=== PATIENT | male | born 1970 | race Caucasian/White ===

== ENCOUNTER 2023-04-02 08:08 | Outpatient (CLI) | payer OTHER, SELFPAY | END 2023-04-02 08:09 | disposition home or self-care (01) | LOC: INJ CL 08:09 | PROVIDERS: PCP Family Medicine; Visit Provider Family Medicine | DX: M54.16 Radiculopathy, lumbar region (principal); M51.26 Other intervertebral disc displacement, lumbar region | CPT/HCPCS: 62323; J0702; Q9966 ==

== ENCOUNTER 2023-04-23 10:01 | Outpatient (CLI) | payer OTHER, SELFPAY | END 2023-04-23 10:02 | disposition home or self-care (01) | LOC: INJ CL 10:01 | PROVIDERS: PCP Family Medicine; Visit Provider Family Medicine | DX: M54.16 Radiculopathy, lumbar region (principal); M51.26 Other intervertebral disc displacement, lumbar region | CPT/HCPCS: 64483; J1100; Q9966 ==

== ENCOUNTER 2023-08-05 16:45 | Outpatient (RCR) | payer BC, OTHER, SELFPAY | END 2023-10-03 13:28 | disposition home or self-care (01) | PROVIDERS: PCP Family Medicine; Visit Provider Family Medicine | DX: M54.16 Radiculopathy, lumbar region (principal); Z51.89 Encounter for other specified aftercare | CPT/HCPCS: 97110; 97140; 97161 ==

== ENCOUNTER 2024-06-23 13:39 | Emergency (ER) | payer BC, SELFPAY ==
--- OUTSIDE RECORDS SUMMARY | 2024-06-23 13:42 | XMS_ITS | Continuity of Care Document ---
Author Organization [facility] Address [address] [place] [address] Phone Care Team Providers Care Route Carrier Name Role Phone Too RIDLEY, PhD, Henok Unavailable Unavai lable Allergies, Adverse Reactions, Alerts Substance Reaction Status Criticality azithromycin Active No Information Medications Medication Instructions Dosage Effective Dates (start - stop) Status Comments ATORVASTATIN CALCIUM (unknown strength) Not Available - Active CITALOPRAM HBR (unknown strength) Not Available - Active FLONASE ALLERGY RELIEF (unknown strength) Not Available - Active OXYCODONE HCL (unknown strength) Not Available - Active LISINOPRIL-HYDROCHLOROT HIAZIDE (unknown strength) Not Available - Active IBUPROFEN (unknown strength) Not Available - Active ACETAMINOPHEN (unknown strength) Not Available - Active Procedures Procedure Date Office/Outpatient Visit,New, Mod 2022 X-Ray Exam Lwr Spine, Min 4 Views Advance Directives Directive Yes / No Effective Date File Name No Information Encounters Encounter Description Practice Location Reason(s) For Visit Diagnoses Date Provider Providers Copied on Encounter Office/Outpat ient Visit,New, Mod [facility], [address], [facility] [place], [id number], [place] tel:[phone] [facility] [place] Spinal stenosis, lumbar region without neurogenic claudication Too [place]. [facility], [address], [place], [address], [place]. tel:[phone] Referring Provider: Jesús Mathews, [employer] [address], [place], [address]. tel:[phone] Family History Family Member Type Diagnosis Age At Onset No Information Payers Payer name Insurance type Covered constitution party ID Geovani chance(s) [employer] [id number] Social History Type Description Quantity Date Captured Comments Sex Male Smoking Status No Information Vital Signs Date / Time: Height Weight BMI Pulse Rate Blood Pressure Temperature Respiratory Rate Body Surface Area Head Circumference Head Circ. Percentile Wt./Avila. Percentile BMI percentile Pulse Ox Inhaled Ox 11:59 AM 71.75 in 112.400 kg (247.80 lbs) 33.8 4 kg/m eter (2) Chief Complaint And Reason For Visit No Information Reason For Referral Reason For Referral No Information History Of Present Illness Encounter Date Complaint History Of Prese nt Illness No Information Functional Status Date Functional Assessmen t No Information Instructions Date Instruction Additional Infor mation No Information Assessments Type Assessment Date No Information Patient Care Teams Name Effective Dates (start - stop) Status Members No Information
--- OUTSIDE RECORDS SUMMARY | 2024-06-23 13:42 | XMS_ITS | Clinical Summary ---
Author Organization [facility] Address [place], [place] [address] Care Team Providers Care Farm Worker Name Role Phone Jesús Mendieta MD Primary Care Provider Allergies Active Allergy Reactions Criticality Noted Date Comments Azithromycin Hives 06/01/2013 Medications EXCEDRIN EXTRA STRENGTH 250 MG-250 MG-65 MG TAB takes prn 0 007 Active fexofenadine (PRAVEEN) 180 mg tabletIndications:Sergio rgic rhinitis, cause unspecified Take 1 tablet by mouth once daily with a meal. 0 015 Active fluticasone propionate (FLONASE ALLERGY RELIEF NASL) 021 Active oxyCODONE (ROXICODONE) 5 mg immediate release tabletIndications:Lumb ar radiculopathy Take 1-2 Tablets (5-10 mg) by mouth every 8 hours if needed for Pain. 24 Tablet 023 Active atorvastatin (LIPITOR) 20 mg tabletIndications:Pure hypercholesterolemia Take 1 Tablet (20 mg) by mouth at bedtime. 90 Tablet 3 024 Active lisinopril-hydrochloro thiazide (10-12.5 mg) tablet (PRINZIDE; ZESTORETIC)Indications :Benign essential HTN Take 1 Tablet by mouth once daily. 90 Tablet 3 024 Active CPAPIndications:FERNANDO (obstructive sleep apnea) CPAP machine for home use at pressure: 5-16 cmw , Heated humidifier x 1 q 5 yr, Humidifier chamber x 1 q 6 mo, nasal mask x1 q 3mos, with cushion x 2 q mo, Heated tubing x 1 q 3 mo, chin strap 1/6 months, Headgear x 1 q 6 mo, Filters: Disposable x 2 q mo non-disposab le filters x1 q 6mo, Length of Need: 99 months, Frequency of use: Daily 1 Each 11 024 Active citalopram (CELEXA) 20 mg tabletIndications:Anxi ety TAKE ONE TABLET BY MOUTH EVERY DAY IN THE MORNING. 30 Tablet 025 Active citalopram (CELEXA) 20 mg tabletIndications:Anxi ety Take 1 Tablet (20 mg) by mouth every morning. 90 Tablet 1 024 06/16 Discontinued Active Problems Problem Noted Date Diagnosed Date Colon polyp 10/24/2023 Overview (10/24/2023): Colonoscopy 10/2023 TA, repeat in 7 years Type 2 diabetes mellitus wit hout complication, without long-term current use of insulin 09/11/2021 Generalized anxiety disorder 01/31/2021 Chronic insomnia 01/01/2021 Lumbar disc herniation 04/13/2016 Lumbar spinal stenosis 04/13/2016 Internal hemorrhoids without mention of complica tion 09/15/2010 Overview (09/15/2010): Colonoscopy 09/2010 hemorrhoid repeat at age 52 Migraine variant 08/08/2010 Overview (08/08/2010): Visual changes no pain Allergic rhinitis, cause unspecified 10/17/2006 Unspecified essential hypertension 10/17/2006 Pure hypercholesterolemia 10/17/2006 Calculus of kidney 10/17/2006 FERNANDO (obstructive sleep apnea) Resolved Problems Problem Noted Date Diagnosed Date Resolved Date Impaired fasting blood sugar 08/09/2010 09/11/2021 Overview (08/09/2010): 118 on 08/09/2010 Internal thrombosed hemorrhoids 08/08/2010 04/02/2018 Mole (skin) 08/08/2010 04/02/2018 Impingement syndrome of shoulder 08/08/2010 04/02/2018 Unspecified congenital cystic kidney disease 7 04/02/2018 Benign neoplasm of skin of o ther and unspecified parts of face 10/17/2006 04/02/2018 Encounters Date Type Department Care Team Description 06/22/2024 7:30 AM [facility] Orders Only [facility] [address] [place] [address] Lab, [place] [facility] 06/22/2024 Travel 06/17/2024 Travel 06/15/2024 Refill [facility] [address] [place] [address] Jesús Mendieta MD Refill Request (Citalopram) from Last 3 Months Immunizations Name Administration Dates Next Due AMB Influenza, IIV4 PF (=>6 mos Flulaval,Fluzone Fluarix)(Flu Clinic Only) 04/03/2016 COVID-19 vaccine (Amina-J& J) PF, MDV 07/23/2020 COVID-19 vaccine (Moderna 100mcg/0.5mL) PF, MDV 03/13/2021 COVID-19 vaccine (ComSense Technology-Bio NTech 30mcg/0.3mL) 12YO+ JENSEN-SUCROSE PF, MDV 10/16/2021 Hepatitis B (Adult) 01/21/2024,08/08/2023,2023 Influenza RIV4 (Age 18+ Year s) PRESERV FREE 01/25/2017 Influenza, IIV3 (Age >=3 years) 03/02/20 21,02/09/2014,02/06/2013,2011 Influenza, IIV4 02/23/2022, 8,04/03/2016,2014 Influenza, IIV4 (=>6mos) MDV 02/12/2020,02/20/20 19 Pneumococcal Conj 20-valent (Prevnar 20) 01/21/2024 Td (Age >=7 Years) 09/10/2002 Tdap 09/11/2021,02/01/2012 Zoster (Shingrix-RZV, recombinant) 07/08/2023, Family History Medical History Relation Name Comments Arthritis Father Heart Disease Father valve disease. Hyperlipidemia Father Hypertension Father Other Father loosing bone de nsity Stroke Maternal Grandfather Heart Disease Maternal Grandmother fatal mi at 59 Heart Disease Maternal Uncle 2 mi at 40 Arthritis Mother Diabetes Mother Heart Disease Mother not cad Other Mother glaucoma Polycystic ovary syndrome Mother Relation Name Status Comments Father Alive 68, hypertensio n, hypercholest, bicuspid aortic valve, at fib Maternal Grandfather (Age 70) CV A age 60 Maternal Grandmother (Age 60s) M I Maternal Uncle 1 (Age 40) cardia c myopathy, Maternal Uncle 2 Mother Alive 69, hypercholes t, AT Fib, Diabetes, Glaucoma, Renal cysts, osteoporosis,prolapsed mitral valve, cardiac arrythimia, kidnye stones Other 1 (Age 42) mmfather, [place] Other 2 (Age 46) mffather, [place] Paternal Grandfather unknown Paternal Grandmother unknown Sister Alive Diabetes Social History Tobacco Use Types Packs/Day Years Used Date Smoking Tobacco: Never Smokeless Tobacco: Never Tobacco Cessation:Counseling Given: No Alcohol Use Standard Drinks/Week Comments Yes 0 (1 standard drink = 0.6 oz pur e alcohol) 2-3 per week PHQ-2 Answer Date Recorded PHQ-2 TOTAL SCORE 1 07/08/2023 Social Connections Answer Date Recorded Do you often feel lonely or isolated from those around you? 0 03/26/2023 Financial Resource Strain Answer Date R ecorded Difficulty of Paying Living Expenses 3 03/26/2023 Difficulty of Paying Living Expenses Not on file 03/26/2023 Food Insecurity Answer Date Recorded Do you worry your food will run out before you are able to buy more? 1 03/26/2023 Transportation Needs Answer Date Record ed Does lack of transportation keep you from medica l appointments? 1 03/26/2023 Does lack of transportation keep you from work, meetings or getting things that you need? 1 03/26/2023 Housing Stability Answer Date Recorded What is your housing situation today? 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 Not on file Not on file Not on yoni e Obstetrics History Last Filed Vital Signs Vital Sign Reading Time Taken Comments Blood Pressure 112/74 01/21/2024 8:08 AM CDT Pulse 80 01/21/2024 7:56 AM CDT Temperature 36.8 C (98.3 F) 07/24/2023 1:00 PM CDT Respiratory Rate 14 10/22/2023 9:28 AM CDT Oxygen Saturation 97% 01/21/2024 7:56 AM CDT Inhaled Oxygen Concentration - - Weight 115.8 kg (255 lb 3.2 oz) 01/21/2024 7:56 AM CDT Height 183.1 cm (6' 0.09) 07/08/2023 8:03 AM CS T Body Mass Index 34.53 07/08/2023 8:03 AM [facility] Plan of Treatment Upcoming Encounters Date Type Department Care Team (Late st Contact Info) Description 07/01/2024 8:00 AM [facility] Office Visit [facility] [address] [place] [address] Jesús Mendieta MD [address] [place] [address] Health Maintenance Due Date Last Done Comments COVID-19 vaccine series ( season) 2024 03/02/2023, 10/16/2021, 03/13/2021, Additional history exists Influenza for age 50-64 01/12/2024 02/24/20, 03/02/2021, 02/12/2020, Additional history exists BMI (ht and wt on same day) for age 18+ 07/08/2024 07/08/2023, 09/11/2021, 03/04/2020, Additional history exists Depression screening for age 12+ 07/08/2024 07/08/2023, 07/08/2023, 09/11/2021, Additional history exists Lipids for age 45-75 06/22/2029 06/22/2024, 01/21/2024, 07/04/2023, Additional history exists Colonoscopy through age 75 10/21/203010/21, 10/22/2023, 10/22/2023, Additional history exists Tetanus booster 09/12/2031 09/11/2021, 01/12, 09/10/2002 Hepatitis C screening for ag e 18-79 Completed 09/11/2021 Tdap Completed 09/11/2021, 02/01/2012 HIV for age 15-65 Completed 06/28/2022 Zoster (shingles) series for age 50+ Completed 07/08/2023, 02/14/2023 Hepatitis B series for Diabetes Completed 01/21/2024, 08/08/2023, 07/08/2023 Pneumococcal series for age 50+ Completed Procedures Procedure Name Priority Date/Time Associated Diagnosis Comments URINE ALBUMIN TO CREATININE RATIO, RANDOM Routine 06/22/2024 7:54 AM [facility] Type 2 diabetes mellitus without complication, without long-term current use of insulin (HC) BASIC METABOLIC PANEL Routine 06/22/2024 7:43 AM [facility] Type 2 diabetes mellitus without complication, without long-term current use of insulin (HC) LIPID PANEL W REFLEX MEASURED LDL Routine 06/22/2024 7:43 AM [facility] Type 2 diabetes mellitus without complication, without long-term current use of insulin (HC) HEMOGLOBIN A1C MONITORING (POCT) Routine 06/22/2024 7:42 AM [facility] Type 2 diabetes mellitus without complication, without long-term current use of insulin (HC) COLONOSCOPY SCREENING Routine 10/22/2023 7:56 AM CDT Screening for colon cancer LC HIV-1/O/2, 4TH GENERATION Routine 06/28/2022 7:53 AM [facility] Encounter for screening for HIV ANTI HCV Routine 09/11/2021 8:49 AM CDT Need for hepatitis C screening test from Last 3 Months or Most Recently Relevant to Health Maintenance Results * URINE ALBUMIN TO CREATININE RATIO, RANDOM (06/22/2024 7:54 AM [facility]) ALB RAND URINE <12.0 mg/L 06/22/2024 6:22 PM [facility] CREATININE,URINE 3.08 g/L 06/22/19 6:22 PM [facility] ALBUMIN TO CREATININE RATIO,RAND UR 06/22/2024 6:22 PM [facility] Comment:Urine Albumin below measurement range, unable to calculate. Urine URINE SPECIMEN / Unknown Non-Blood / Unknown 06/22/2024 7:54 AM [facility] 06/22/2024 7:54 AM [facility] Narrative [facility] - 06/22/2024 6:22 PM [facility] If Albumin to Creatinine Ratio is elevated, consider the following: Elevations seen with incipient nephropathy associated with diabetes mellitus or hypertension. Stress, exercise,hematuria, and urinary tract infection may also produce elevated results. If clinically indicated, confirm with 24 Hour Albumin to Creatinine Ratio. us Jesús Mendieta MD URINE Final Result [facility] [address] [place] [address], [place] * LIPID PANEL W REFLEX MEASURED LDL (06/22/2024 7:43 AM [facility]) CHOLESTEROL, TOTAL 158 <200 mg/dL [facility] HDL CHOLESTEROL 53 > OR = 40 mg/dL [facility] TRIGLYCERIDES 107 <150 mg/dL [facility] LDL-CHOLESTEROL 85 mg/dL (calc) [facility] Comment: Reference range: <100 Desirable range <100 mg/dL for primary prevention; <70 mg/dL for patients with CHD or diabetic patients with > or = 2 CHD risk factors. LDL-C is now calculated using the Michael-Vlad calculation, which is a validated novel method providing better accuracy than the Friedewald equation in the estimation of LDL-C. Michael YEE et al. REDDY. 2013;310(19): 3889-6498 (http://education.uromovie.Bizible/faq/EFE547) CHOL/HDLC RATIO 3.0 <5.0 (calc) [facility] NON HDL CHOLESTEROL 105 <130 mg/dL (calc) [facility] Comment: For patients with diabetes plus 1 major ASCVD risk factor, treating to a non-HDL-C goal of <100 mg/dL (LDL-C of <70 mg/dL) is considered a therapeutic option. Blood BLOOD SPECIMEN / Unknown 06/22/2024 7:43 AM [facility] 06/22/2024 7:44 AM [facility] us Jesús Mendieta MD CHEMISTRY Final Result Performing Organization Address [facility] Co de Phone Number trend.ly [facility] [address] [place] [address], [facility] [address] [place] [address] * (ABNORMAL) BASIC METABOLIC PANEL (06/22/2024 7:43 AM [facility]) GLUCOSE 146(H) 65 - 99 mg/dL [facility] Comment: Fasting reference interval For someone without known diabetes, a glucose value >125 mg/dL indicates that they may have diabetes and this should be confirmed with a follow-up test. UREA NITROGEN (BUN) 19 7 - 25 mg/dL [facility] CREATININE 1.08 0.70 - 1.30 mg/dL [facility] EGFR 83 > OR = 60 mL/min/1. 73m2 [facility] BUN/CREATININE RATIO SEE NOTE: 6 - 22 (calc) [facility] Comment: Not Reported: BUN and Creatinine are within reference range. SODIUM 141 135 - 146 mmol/L [facility] POTASSIUM 4.4 3.5 - 5.3 mmol/L [facility] CHLORIDE 107 98 - 110 mmol/L [facility] CARBON DIOXIDE 26 20 - 32 mmol/L [facility] ELECTROLYTE BALANCE 8 7 - 17 mmol/L (calc) [facility] CALCIUM 9.1 8.6 - 10.3 mg/dL [facility] Blood BLOOD SPECIMEN / Unknown 06/22/2024 7:43 AM [facility] 06/22/2024 7:44 AM [facility] Jesús Mendieta MD CHEMISTRY Final Result Performing Organization Address [facility]/ZIP Co de Phone Number [facility] [address] [place] [address], [facility] [address] [place] [address] * (ABNORMAL) HEMOGLOBIN A1C MONITORING (POCT) (06/22/2024 7:42 AM [facility]) POC HEMOGLOBIN A1C 6.7(H) <6.0 % OF TOTAL HGB [facility] Comment: Any point of care results exhibiting inconsistency with the patient's clinical status should be repeated using a different testing method. Blood BLOOD SPECIMEN / Unknown 06/22/2024 7:42 AM [facility] 06/22/2024 7:43 AM [facility] Jesús Mendieta MD CHEMISTRY Final Result Performing Organization Address [facility] Co de Phone Number [facility] [address] [place] [address], [facility] [address] [place] [address] * COLONOSCOPY (10/22/2023 7:54 AM CDT) 10/22/2023 7:54 AM CDT Narrative Transcriptions Michael Gonzales MD - 10/22/2023 9:10 AM CDT Patient Name: Burak Back Procedure Date: 10/22/2023 Gender: Male Date of : 1970 Admit Type: Outpatient Procedure: Colonoscopy Proceduralist: Michael Gonzales MD , Fransicsa Zaragoza (Nurse), Mary Causey (Nurse) Indications/Pre-Op Diagnosis: Screening for colorectal malignant neoplasm, Last colonoscopy: September 2010 Medications: Fentanyl 100 micrograms IV, Midazolam 4 mgIV, The level of sedation administered wasmoderate Procedure Description: The patient had risks, benefits and alternatives explained to andgave informed consent. The patient had a stable cardiopulmonary status and judged an adequate candidate for conscious sedation. The endoscope [id number] was passed through the anus andadvanced to the cecum, identified by appendiceal orifice and ileocecal valve.The colonoscopy was performed without difficulty. The patient toleratedthe procedure well. The quality of the bowel preparation was good. The ileocecal valve, appendiceal orifice, and rectum were photographed. Complications: No immediate complications. Estimated Blood Loss & Specimen: Estimated blood loss: none. Specimen collected - Yes and sent to Laboratory Findings: The perianal and digital rectal examinations were normal. A 3 mm polyp was found in the sigmoid colon. The polyp was sessile.The polyp was removed with a cold biopsy forceps. Resection and retrieval were complete. The exam was otherwise without abnormality on direct and retroflexion views. Impressions/Post-Op Diagnosis: - One 3 mm polyp in the sigmoid colon, removed with a cold biopsy forceps. Resected and retrieved. - The examination was otherwise normal on direct and retroflexionviews. Recommendation: - Patient has a contact number available for emergencies. The signsand symptoms of potential delayed complications were discussed with the patient. Return to normal activities tomorrow. Written discharge instructions were provided to the patient. - Resume previous diet. - Continue present medications. - Await pathology results. - Repeat colonoscopy is recommended. The colonoscopy date will be determined after pathology results from today's exam become available for review. Moderate Sedation: A time out was performed before the procedure. Moderate (conscious) sedation was administered by the endoscopy nurse and supervised bythe endoscopist. The following parameters were monitored: oxygensaturation, heart rate, blood pressure, EKG, CO2, respiratory rate, adequacy of pulmonary ventilation and reponse to care. Please refer to the patient's medical record flowsheets and nursing notes for moderate sedation details. Total physician intraservice time was 15 minutes. Michael Gonzales MD 10/22/2023 9:10:19 AM This report has been signed electronically. Note Initiated On: 10/22/2023 7:54 AM Procedure Code(s): --- Professional --- 62037, Colonoscopy, flexible; with biopsy, single or multiple Diagnosis Code(s): --- Professional --- Z12.11, Encounter for screening formalignant neoplasm of colon D12.5, Benign neoplasm of sigmoid colon CPT copyright 2022 [employer]. All rights reserved. The codes documented in this report are preliminary and upon comb setter reviewmay be revised to meet current compliance requirements. Scope In: 8:52:23 AM Scope Withdrawal Time 0 hours 9 minutes 2 seconds Scope Out: 9:04:29 AM us Michael Gonzales MD PROCEDURE ORD Final Res ult * LC HIV-1/O/2, 4TH GENERATION (06/28/2022 7:53 AM [facility]) HIV Scr 4th Gen Non Reactive Non Reactive 06/30/2022 1:10 PM [facility] Comment: HIV Negative HIV-1/HIV-2 antibodies and HIV-1 p24 antigen were NOT detected. There is no laboratory evidence of HIV infection. Blood BLOOD SPECIMEN / Unknown Venipuncture / Unknown 06/28/2022 7:53 AM [facility] 06/28/2022 7:57 AM [facility] Narrative [facility] - 06/30/2022 1:10 PM [facility] Performed at: [address] [place] [address] [address] [place], [place] [id number] [employer] Technician: Cem Vallejo MD, Phone: [phone] us Jesús Mendieta MD LABORATORY Final Result [facility] [address] [place] [address], [place] * ANTI HCV (09/11/2021 8:49 AM CDT) HEPATITIS C ANTIBODY Non-React beni Non-React beni 09/11/2021 6:12 PM CDT [facility] Comment:Antibodies to HCV no t detected; does not exclude the possibility of exposure to HCV. Blood BLOOD SPECIMEN / Unknown Venipuncture / Unknown 09/11/2021 8:49 AM CDT 09/11/2021 8:49 AM CDT Jesús Mendieta MD SEND OUTS Final Result [facility] [address] [place] [address], [place] from Last 3 Months or Most Recently Relevant to Health Maintenance Insurance [facility] * Guarantor: ANTON VALDIVIA Account Type Relation to Patient Date of Phone Billing Address [facility] [employer] [address] [place] [address] Care Teams Farm Worker Relationship Specialty Start Date End Date Jesús Mendieta MD [address] [place] [address] PCP - General Family Practice 04/11/12
[2024-06-23 13:50] VITALS: BP 148/98; PULSE 77; RESP 16; TEMP 36.4; O2SAT 99; BMI 33.9
--- NOTE | 2024-06-23 14:05 | CRLHL7_ITS ---
For Patients: As a result of the Century Cures Act, medical imaging exams and procedure reports are released immediately into your electronic medical record. You may view this report before your referring provider. If you have questions, please contact your health care provider. INDICATION: COMPARISON: None TECHNIQUE: CT of the head without contrast. FINDINGS: Brain Parenchyma: No acute infarct, acute intracranial hemorrhage, mass effect, or midline shift. Basal ganglia calcifications on the right. Ventricles: No hydrocephalus. Extra-axial Spaces: No abnormal fluid collection. Paranasal sinuses: Mucosal thickening of the left maxillary sinus with air-fluid levels. The remaining paranasal sinuses are clear. Orbits: Unremarkable Mastoid Sinuses: Unremarkable Cranium: No acute fracture Soft tissues: Unremarkable IMPRESSION: 1. No CT evidence of an acute intracranial process. 2. CT findings suggestive of acute left maxillary sinusitis. Please note that all CT scans at this facility use dose modulation, iterative reconstruction, and/or weight-based dosing when appropriate to reduce radiation dose to as low as reasonably achievable. Dictated by Placido Holcomb MD @ 06/23/2024 2:57:45 PM (Electronically Signed)
--- NOTE | 2024-06-23 14:08 | ED_ITS ---
HPI - General Adult General Chief complaint: Headache/Migraine Stated complaint: Hit head this morning, thin red liquid out of nose Time Seen by Provider: 06/23/24 13:47 History of Present Illness HPI narrative: [age] year white male fell backwards this morning at the back of his head, he slipped. He had no chest pain or breathing problem. He bent over then a short while later and was getting some food out of the refrigerator and had a gush of fluid that was blood tinged out of his nose. Thinks was the left side. He has had no persistent leakage no salty taste to the fluid. Or no salty taste in his mouth. He has not had any ear pain describes a mild frontal headache. N o nasal injury. He has not had sinusitis but does have allergies. He is allergic to a Zithromax. No neck pain, no back pain. No other injuries. He has been generally quite healthy. Related Data Previous Rx's ?Medication ?Instructions ?Recorded amoxicillin 875 mg-potassium 1 tab PO BID #30 tabs 06/23/24 clavulanate 125 mg tablet Allergies Allergy/AdvReac Type Severity Reaction Status Date / Time azithromycin (From Zithromax) Allergy Verified 06/23/24 13:50 Review of Systems Status of ROS: Reports: 6 or more systems reviewed and unremarkable except as noted in History and below Exam Narrative: Exam Narrative: Objective vital signs are within normal limits other than slightly elevated blood pressure Patient is alert or x3 no distress HEENT is unremarkable facial asymmetry no trauma to the nose area denies any significant pain to the back of his head her an area in the back of his head He has got no neck pain. He has got no focal neurologic findings. Denies any persistent drainage from nose or ears. Const: Vital Signs, click to edit/add: Vital Signs - 24 hr 06/23/24 13:50 Temperature 97.5 F L Pulse Rate [Pulse Oximeter] 77 Respiratory Rate 16 Blood Pressure [Le ft Upper Arm] 148/98 H Pulse Oximetry 99 Oxygen Delivery Me thod Room Air Course Vital Signs Vital signs: Initial Vital Signs Temperature 97.5 F L 06/23/24 13:50 Temperature Source Temporal Artery Scan 06/23/24 13:50 Pulse Rate 77 06/23/24 13:50 Respiratory Rate 16 06/23/24 13:50 Blood Pressure 148/98 H 06/23/24 13:50 Blood Pressure Mean 114 H 06/23/24 13:50 Blood Pressure Position High-Fowlers 06/23/24 13:50 Pulse Oximetry 99 06/23/24 13:50 Oxygen Delivery Method Room Air 06/23/24 13:50 Vital Signs Temperature 97.5 F L 06/23/24 13:50 Pulse Rate 77 06/23/24 13:50 Respiratory Rate 16 06/23/24 13:50 Blood Pressure 148/98 H 06/23/24 13:50 Pulse Oximetry 99 06/23/24 13:50 Oxygen Delivery Method Room Air 06/23/24 13:50 Temperature 97.5 F L 06/23/24 13:50 Pulse Rate 77 06/23/24 13:50 Respiratory Rate 16 06/23/24 13:50 Blood Pressure 148/98 H 06/23/24 13:50 Pulse Oximetry 99 06/23/24 13:50 Oxygen Delivery Method Room Air 06/23/24 13:50 Medications Administered Medications: Discontinued Medications Generic Name Dose Route Start Last Admin Trade Name Edi PRN Reason Stop Dose Admin Amoxicillin/Clavulanate Potassium 875 mg 06/23/24 14:20 06/23/24 14:43 Amoxicillin/Clavulanate 875 Mg/125 Mg Tablet PO 06/23/24 14:21 875 mg ONCE ONE Administration Medical Decision Making MDM Narrative Medical decision making narrative: 54-year-old male with a fall in the back of his head with mild gush of fluid when he bent over subsequent to the fall. I do not suspect he has got a CSF leak but this is certainly a possibility. I suspect it is more a sinus related issue, especially given he has had allergies especially given it was blood tinged. At this point I think will cover him with his Augmentin prevented Ali for the next 5-7 days, follow up with ENT. Light activity, sooner as needed return to the ED. goal Tylenol as needed Addendum: There was no further leakage from the nose and the patient has some fluid collected on a tissue but were unable to send that from lab for a beta 2 transferrin. I was able to examine his tissue where he had the fluid collection there was no halo sign. It was a little bit of blood tinged fluid. Addendum 3:[address] patient's head CT is looked read as negative except for findings of acute left maxillary sinusitis. Will treat with Augmentin 875 b.i.d. times 2 weeks. Will have him follow-up with Dr. Burgos in. Return sooner problems or concerns periodic Tylenol be acceptable. Light activity, avoid repeat head injury. Light activity for the next week. Would recommend he recheck with regular doctor next few days as well. Feels continue leakage out of his nose should follow up in the ER again. Lab Data Labs: Lab Results 06/23/24 Range/Units 14:06 Lab Acknowledgement New Spec Needed Discharge Plan Discharge Clinical Impression: Closed head injury, Sinusitis Patient Disposition: Home, Self-Care Condition: Stable Additional Instructions: Augmentin 875 b.i.d. times 14 days for sinus infection, if you have continued leakage out ear nose it seems like it is dripping or clear fluid and should return to the ED. will have a follow-up with her ENT DrLeah Alba in in the next 5-7 days. Recommend light activity, Tylenol as needed, avoid repeat head injury. Follow up ENT appointment is scheduled at the [facility] on 07/02 with an 11:45am appointment time. Please check in at 11:30am to complete paperwork. If you have any questions or need to reschedule, please call [phone]. [facility] [address] [place] [address] Activity Level: Light activity Discharge Diet: Regular Prescriptions: New amoxicillin-pot clavulanate 875-125 mg tablet 1 tab PO BID Qty: 30 0RF Follow Up/Referrals: Jesús Mendieta MD [Primary Care Provider] - Stand Alone Forms: [facility] Info Instructions
[2024-06-23 14:19] LABS: Lab Add On Test New Spec Needed
--- OUTSIDE RECORDS SUMMARY | 2024-06-23 14:19 | XMS_ITS | Continuity of Care Document ---
Author Organization [facility] Address [address] [place] [address] Phone Care Team Providers Care Armored Car Driver Name Role Phone Too RIDLEY, PhD, Henok [...] Visit,New, Mod [facility], [address], [facility] [place], [id number], [place] tel:[phone] [facility] [place] Spinal stenosis, lumbar region without neurogenic claudication Too [place]. [facility], [address], [place], [address], [place]. tel:[phone] Referring Provider: Jesús Mathews, [facility] [employer] [address], [place], [address]. tel:[phone] Family History Family Member Type Diagnosis Age At Onset No Information Payers Payer name Insurance type Covered libertarian ID Geovani chance(s) [employer] [id number] Social History Type Description Quantity Date Captured [...]
--- OUTSIDE RECORDS SUMMARY | 2024-06-23 14:20 | XMS_ITS | Clinical Summary ---
Author Organization [facility] Address [place], [place] [address] Care Team Providers Care Systems Designer Name Role Phone Jesús Mendieta MD Primary [...] Department Care Team Description 06/22/2024 7:30 AM HEALTH SAFETY MANAGER Orders Only [facility] [address] [place] [address] Lab, [place] Lab 06/22/2024 Travel 06/17/2024 Travel 06/15/2024 Refill [facility] [address] [place] [address] [address] Jesús Mendieta MD Refill Request (Citalopram) from Last 3 Months Immunizations Name Administration Dates Next Due AMB Influenza, IIV4 PF (=>6 mos Flulaval,Fluzone Fluarix)(Flu Clinic Only) 04/03/2016 COVID-19 vaccine (Amina-J& J) PF, MDV 07/23/2020 COVID-19 vaccine (Moderna 100mcg/0.5mL) PF, MDV 03/13/2021 COVID-19 vaccine (Safehouse-Bio NTech 30mcg/0.3mL) 12YO+ JENSEN-SUCROSE PF, MDV 10/16/2021 [...] kidnye stones Other 1 (Age 42) mmfather, [place] Other 2 (Age 46) mffather, [place] Paternal Grandfather unknown Paternal Grandmother unknown Sister [...] on file Legal Sex Male 6:21 AM HEALTH SAFETY MANAGER Gender Identity Not on file Sexual Orientation Not on file 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 Not on file Not on file Not [...] Body Mass Index 34.53 07/08/2023 8:03 AM HEALTH SAFETY MANAGER Plan of Treatment Upcoming Encounters Date Type Department Care Team (Late st Contact Info) Description 07/01/2024 8:00 AM HEALTH SAFETY MANAGER Office Visit [facility] [address] [place] [address] Jesús Mendieta MD [address] [place] [address] Health Maintenance Due Date Last Done Comments [...] CREATININE RATIO, RANDOM Routine 06/22/2024 7:54 AM HEALTH SAFETY MANAGER Type 2 diabetes mellitus without complication, without long-term current use of insulin (HC) BASIC METABOLIC PANEL Routine 06/22/2024 7:43 AM HEALTH SAFETY MANAGER Type 2 diabetes mellitus without complication, without long-term current use of insulin (HC) LIPID PANEL W REFLEX MEASURED LDL Routine 06/22/2024 7:43 AM HEALTH SAFETY MANAGER Type 2 diabetes mellitus without complication, without long-term current use of insulin (HC) HEMOGLOBIN A1C MONITORING (POCT) Routine 06/22/2024 7:42 AM HEALTH SAFETY MANAGER Type 2 diabetes mellitus without complication, without long-term current use of insulin (HC) COLONOSCOPY SCREENING Routine 10/22/2023 7:56 AM CDT Screening for colon cancer LC HIV-1/O/2, 4TH GENERATION Routine 06/28/2022 7:53 AM HEALTH SAFETY MANAGER Encounter for screening for HIV ANTI HCV Routine 09/11/2021 8:49 AM CDT Need for hepatitis C screening test from Last 3 Months or Most Recently Relevant to Health Maintenance Results * URINE ALBUMIN TO CREATININE RATIO, RANDOM (06/22/2024 7:54 AM HEALTH SAFETY MANAGER) ALB RAND URINE <12.0 mg/L 06/22/2024 6:22 PM HEALTH SAFETY MANAGER [facility] CREATININE,URINE 3.08 g/L 06/22/19 6:22 PM HEALTH SAFETY MANAGER [facility] ALBUMIN TO CREATININE RATIO,RAND UR 06/22/2024 6:22 PM HEALTH SAFETY MANAGER [facility] Comment:Urine Albumin below measurement range, unable to calculate. Urine URINE SPECIMEN / Unknown Non-Blood / Unknown 06/22/2024 7:54 AM HEALTH SAFETY MANAGER 06/22/2024 7:54 AM HEALTH SAFETY MANAGER Narrative [facility] - 06/22/2024 6:22 PM HEALTH SAFETY MANAGER If Albumin to Creatinine Ratio is elevated, consider the following: Elevations seen with incipient nephropathy associated with diabetes mellitus or hypertension. Stress, exercise,hematuria, and urinary tract infection may also produce elevated results. If clinically indicated, confirm with 24 Hour Albumin to Creatinine Ratio. us Jesús Mendieta MD URINE Final Result [facility] [address] [place] [address], [place] * LIPID PANEL W REFLEX MEASURED LDL (06/22/2024 7:43 AM HEALTH SAFETY MANAGER) CHOLESTEROL, TOTAL 158 <200 mg/dL [facility] [...] LDL-C. Michael YEE et al. REDDY. 2013;310(19): 1761-5192 (http://education.[employer]/faq/QRC887) CHOL/HDLC RATIO 3.0 <5.0 (calc) [facility] NON HDL CHOLESTEROL 105 <130 mg/dL (calc) [facility] Comment: For patients with diabetes plus 1 major ASCVD risk factor, treating to a non-HDL-C goal of <100 mg/dL (LDL-C of <70 mg/dL) is considered a therapeutic option. Blood BLOOD SPECIMEN / Unknown 06/22/2024 7:43 AM HEALTH SAFETY MANAGER 06/22/2024 7:44 AM HEALTH SAFETY MANAGER us Jesús Mendieta MD CHEMISTRY Final Result Performing Organization Address City/[facility] Co de Phone Number Group-IB [facility] [place] [address] [place] [address], [facility] [address] [place] [address] * (ABNORMAL) BASIC METABOLIC PANEL (06/22/2024 7:43 AM HEALTH SAFETY MANAGER) GLUCOSE 146(H) 65 - 99 mg/dL [facility] Comment: Fasting reference interval For [...] BLOOD SPECIMEN / Unknown 06/22/2024 7:43 AM HEALTH SAFETY MANAGER 06/22/2024 7:44 AM HEALTH SAFETY MANAGER Jesús Mendieta MD CHEMISTRY Final Result Performing Organization Address City/[facility]/ZIP Co de Phone Number [facility] [place] [address] [place] [address], [facility] [address] [place] [address] * (ABNORMAL) HEMOGLOBIN A1C MONITORING (POCT) (06/22/2024 7:42 AM HEALTH SAFETY MANAGER) POC HEMOGLOBIN A1C 6.7(H) <6.0 % OF TOTAL [facility] Comment: Any point of care results exhibiting inconsistency with the patient's clinical status should be repeated using a different testing method. Blood BLOOD SPECIMEN / Unknown 06/22/2024 7:42 AM HEALTH SAFETY MANAGER 06/22/2024 7:43 AM HEALTH SAFETY MANAGER Jesús Mendieta MD CHEMISTRY Final Result Performing Organization Address [facility] Co de Phone Number [facility] [address] [place] [address], [facility] [address] [place] [address] * COLONOSCOPY (10/22/2023 7:54 AM CDT) 10/22/2023 7:54 AM CDT Narrative Transcriptions Michael Gonzales MD - 10/22/2023 9:10 AM CDT Patient Name: Burak Back Procedure Date: 10/22/2023 Gender: Male Date of : 1970 Admit Type: Outpatient Procedure: Colonoscopy Proceduralist: Michael Gonzales MD , Fransisca Zaragoza (Nurse), Mary Causey (Nurse) Indications/Pre-Op Diagnosis: Screening for colorectal malignant neoplasm, Last colonoscopy: September 2010 Medications: Fentanyl 100 micrograms IV, Midazolam 4 mgIV, The level of sedation administered wasmoderate Procedure Description: The patient had risks, benefits and alternatives explained to andgave informed consent. The patient had a stable cardiopulmonary status and judged an adequate candidate for conscious sedation. The endoscope [id number] was passed through the anus andadvanced to [...] 7:54 AM Procedure Code(s): --- Professional --- 51803, Colonoscopy, flexible; with biopsy, single or multiple Diagnosis Code(s): --- Professional --- Z12.11, Encounter for screening formalignant neoplasm of colon D12.5, Benign neoplasm of sigmoid colon CPT copyright 2022 [employer]. All rights reserved. The codes documented in this report are preliminary and upon mounted police officer reviewmay be revised to meet current compliance requirements. Scope In: 8:52:23 AM Scope Withdrawal Time 0 hours 9 minutes 2 seconds Scope Out: 9:04:29 AM us Michael Gonzales MD PROCEDURE ORD Final Res ult * LC HIV-1/O/2, 4TH GENERATION (06/28/2022 7:53 AM HEALTH SAFETY MANAGER) HIV Scr 4th Gen Non Reactive Non Reactive 06/30/2022 1:10 PM HEALTH SAFETY MANAGER [facility] Comment: HIV Negative HIV-1/HIV-2 antibodies and HIV-1 p24 antigen were NOT detected. There is no laboratory evidence of HIV infection. Blood BLOOD SPECIMEN / Unknown Venipuncture / Unknown 06/28/2022 7:53 AM HEALTH SAFETY MANAGER 06/28/2022 7:57 AM HEALTH SAFETY MANAGER Narrative [facility] - 06/30/2022 1:10 PM HEALTH SAFETY MANAGER Performed at: [address] [place] [address] [address] [place], [place] [id number] Supervisor Assembling: Cem Vallejo MD, Phone: [phone] us Jesús Mendieta MD LABORATORY Final Result [facility] ([facility] [address] [place] [address], [place] * ANTI HCV (09/11/2021 8:49 AM CDT) HEPATITIS C ANTIBODY Non-React beni Non-React beni 09/11/2021 6:12 PM CDT [facility] Comment:Antibodies to HCV no t detected; does not exclude the possibility of exposure to HCV. Blood BLOOD SPECIMEN / Unknown Venipuncture / Unknown 09/11/2021 8:49 AM CDT 09/11/2021 8:49 AM CDT Jesús Mendieta MD SEND OUTS Final Result [facility] [address] [place] [address], [place] from Last 3 Months or Most Recently Relevant to Health Maintenance Insurance [facility] * Guarantor: ANTON VALDIVIA Account Type Relation to Patient Date of Phone Billing Address [facility] [employer] [address] [place] [address] Care Teams Systems Designer Relationship Specialty Start Date End Date Jesús Mendieta MD [address] [place] [address] PCP - General Family Practice 04/11/12
[2024-06-23] MEDS: AMOXICILLIN/CLAVULANATE 875 mg/125 mg TABLET PO (14:43)
== END 2024-06-23 15:36 | disposition home or self-care (01) ==
PROVIDERS: Emergency Provider Family Medicine; PCP Family Medicine
DX: S09.90XA Unspecified injury of head, initial encounter (principal); J32.1 Chronic frontal sinusitis; W01.0XXA Fall on same level from slipping, tripping and stumbling without subsequent striking against object, initial encounter
CPT/HCPCS: 70450; 99284; A9270